=== PATIENT | female | born 1985 | race Caucasian/White ===

== ENCOUNTER 2021-12-21 13:11 | Outpatient (RCR) | payer OTHER, SELFPAY ==
[2021-12-21 14:35] LABS: Beta HCG Quantitative < 2.39 mIU/ML
== END 2022-03-21 23:59 | disposition home or self-care (01) ==
LOC: ANHLAB 13:11
PROVIDERS: PCP Family Medicine; Visit Provider Obstetrics & Gynecology
DX: O20.0 Threatened abortion (principal); Z3A.00 Weeks of gestation of pregnancy not specified
CPT/HCPCS: 36415; 84702; 85461